=== PATIENT | female | born 1955 | race Caucasian/White ===

== ENCOUNTER 2016-06-14 08:44 | Day surgery (SDC) | payer MEDICARE ==
[2016-06-14] MEDS ORDERED: DIPRIVAN 200 MG/20 ML IV ONE (10:00)
--- NOTE | 2016-06-14 11:27 | XRAY ---
Indication: Left L3-S1 MBB. Intraoperative fluoroscopy was provided for 7 seconds. Single digital spot image submitted for interpretation demonstrates 4 posterior spinal needles with the tips projecting adjacent to the superior facets of L3-S1. Correlate with intraoperative findings/report.
--- NOTE | 2016-06-14 13:18 | XRAY ---
7 seconds of fluoroscopy was used in surgery for a left MBB L3-S1.
[2016-06-14] MEDS ORDERED: Kenalog-40 IM ONE (15:00)
[2016-06-14] MEDS ORDERED: Lactated Ringers IV ONE (15:00)
[2016-06-14] MEDS ORDERED: Sensorcaine 0.25% 10 ML IJ ONE (15:00)
== END 2016-06-14 11:30 | disposition home or self-care (01) ==
LOC: SDC-PAIN 08:44
PROVIDERS: ATTEND Pain Medicine Interventional Pain Medicine
DX: M51.36 Other intervertebral disc degeneration, lumbar region (principal); M47.816 Spondylosis without myelopathy or radiculopathy, lumbar region; M54.5 Low back pain; Z79.891 Long term (current) use of opiate analgesic
CPT/HCPCS: 64493; 64494; 64495; 72020; 77003; J2704; J3301

== ENCOUNTER 2016-08-23 08:21 | Day surgery (SDC) | payer MEDICARE ==
[~2016-08-23 08:21] MED LIST: Kenalog-40 IM ONE; Lactated Ringers 1,000 ML IV ONE; Sensorcaine 0.25% 10 ML IJ ONE
[2016-08-23] MEDS ORDERED: DIPRIVAN 200 MG/20 ML IV ONE (13:00)
--- NOTE | 2016-08-23 17:19 | XRAY ---
8 seconds fluoroscopy time in surgery for left side L2-5 MBB.
--- NOTE | 2016-08-25 02:17 | XRAY ---
Indication: Left L2-L5 MBB Intraoperative fluoroscopy was provided for 8 seconds. Single digital spot image was submitted for interpretation and demonstrates posterior spinal needles with tips projected over the expected course of the left L2-L5 nerve roots. Correlate with intraoperative findings/report.
== END 2016-08-23 10:20 | disposition home or self-care (01) ==
LOC: SDC-PAIN 08:21
PROVIDERS: ATTEND Pain Medicine Interventional Pain Medicine
DX: M51.36 Other intervertebral disc degeneration, lumbar region (principal); M47.816 Spondylosis without myelopathy or radiculopathy, lumbar region; M54.5 Low back pain; Z79.891 Long term (current) use of opiate analgesic
CPT/HCPCS: 64493; 64494; 64495; 72020; 77003; J2704; J3301